=== PATIENT | female | born 1965 | race Caucasian/White ===

== ENCOUNTER 2020-09-30 21:23 | Emergency (ER) | payer SELFPAY ==
[~2020-09-30] VITALS: Ht 170.2 cm; Wt 84.1 kg
[2020-09-30 21:32] VITALS: BP 152/87; TEMP 98.4
[2020-10-01] MEDS ORDERED: NORCO 325 MG-51 TAB PO (00:18)
[2020-10-01 00:26] VITALS: PULSE 87
== END 2020-10-01 00:27 | disposition home or self-care (01) ==
LOC: COL.ER 21:23
DX: M87.052 Idiopathic aseptic necrosis of left femur (principal); N18.9 Chronic kidney disease, unspecified; F17.200 Nicotine dependence, unspecified, uncomplicated

== ENCOUNTER 2020-10-20 05:50 | Day surgery (SDC) | payer SELFPAY ==
[~2020-10-20] VITALS: Ht 170.2 cm; Wt 95.8 kg
[~2020-10-20 05:50] MED LIST: NORCO 325 MG-51 TAB PO
[2020-10-20 06:12] VITALS: BP 140/82; PULSE 81; TEMP 99
[2020-10-20 08:28] VITALS: TEMP 98.3
[2020-10-20 08:45] VITALS: BP 134/86; PULSE 77
--- NOTE | 2020-10-20 08:45 | NUR ---
Patient returns to room 7 per cart from PACU accompanied by Alida FRANCO and is awake and alert. Foot of cart elevated and ice bag on the right foot. Toes on the right foot pink and is able to wiggle toes freely. IV fluids infusing at TKO. Siderails up x2 and call light in reach. Allowed to rest.
[2020-10-20 09:00] VITALS: BP 134/77; PULSE 77
--- NOTE | 2020-10-20 09:00 | NUR ---
Continues to rest without any complaints of pain or nausa. Foot of cart remains elevated. IV fluids infusing. Siderails up x2. Ice bag on the right foot.
[2020-10-20 09:15] VITALS: BP 139/75; PULSE 78
--- NOTE | 2020-10-20 09:15 | NUR ---
More awake now. Taking grape juice. Denies right foot pain.
[2020-10-20 09:30] VITALS: BP 142/74; PULSE 79
--- NOTE | 2020-10-20 09:30 | NUR ---
Patient continues to deny right foot pain. Tolerated juice. Awake and alert. States that she is wanting her daughter to come and pick her up and wants to go home. Informed that she must eat and void prior to discharge. States that she will eat toast. IV to INT. Given toast to eat.
--- NOTE | 2020-10-20 09:35 | NUR ---
IV to INT and patient transfers from cart to bedside commode with use of walker. Instructed that she is not allowed to put any weight on the right foot. Bulky bertha wrap dressing and posterior splint remain dry.
--- NOTE | 2020-10-20 09:45 | NUR ---
Voids and is now resting on cart. Maritzae notified that patient is ready for discharge. INT discontinued and site is free of redness.
--- NOTE | 2020-10-20 10:05 | NUR ---
Patient is dressed.
--- NOTE | 2020-10-20 10:11 | NUR ---
Patient dismissed to home driven by daughter and taken to the front door per wheelchair and assisted into vehicle with instructions in hand.
--- NOTE | 2020-10-20 10:11 | NUR ---
Dismissal instructions given and patient voices understanding of these. States that she has her pain medication at home.
== END 2020-10-20 10:30 | disposition home or self-care (01) ==
LOC: SDCO 05:50
DX: M87.074 Idiopathic aseptic necrosis of right foot (principal); F17.210 Nicotine dependence, cigarettes, uncomplicated; Z79.899 Other long term (current) drug therapy
CPT/HCPCS: C1713; J0690; J1100; J1170; J2250; J2405; J2704; J2795; J3010; J7120

== ENCOUNTER 2022-04-27 13:14 | Day surgery (SDC) | payer MEDICAID ==
[~2022-04-27] VITALS: Ht 170.2 cm; Wt 89.2 kg
[2022-04-27 13:51] VITALS: BP 120/82; PULSE 79; TEMP 97.2
[2022-04-27] MEDS ORDERED: ZOFRAN ODT4 MG PO (14:05)
[2022-04-27] MEDS ORDERED: ZOLOFT 50MG50 MG PO (14:06)
[2022-04-27] MEDS ORDERED: PRIL40 PO (14:06)
[2022-04-27] MEDS ORDERED: DESYREL 100MG100 MG PO (14:06)
[2022-04-27] MEDS ORDERED: GLUCOPHAGE500 MG/TAB PO (14:07)
[2022-04-27] MEDS ORDERED: NEURONTIN300 MG/CAP PO (14:07)
[2022-04-27 15:10] VITALS: BP 125/76; PULSE 70; TEMP 97.7
[2022-04-27 15:15] VITALS: BP 122/70; PULSE 70
[2022-04-27 15:25] VITALS: BP 120/86; PULSE 72
--- NOTE | 2022-04-27 16:05 | NUR ---
1510 RECEIVED POST PROCEDURE REPORT FROM SALVADOR HUFF. PT IS ALERT AND REQUESTING TO USE RESTROOM. PT TAKEN TO RESTROOM. AMBULATORY BACK TO RECLINER. 1520 [facility] AND [facility] PUDDING PROVIDED PT TOLERATED PO IV WAS ACCIDENTLY PULLED OUT BY PT WHILE STILL IN PROCEDURE ROOM. CATHETER INTACT. BLEEDING CONTROLLED. 1545 PT EDUCATION INFORMATION AND PROVIDER DISCHARGE INSTRUCTIONS REVIEWED WITH PT. QUESTIONS INVITED. PT VERBALIZED UNDERSTANDING. 1600 PT TO LOBBY VIA WHEEL CHAIR FOR RIDE HOME WITH [facility] [employer].
== END 2022-04-27 16:05 | disposition home or self-care (01) ==
LOC: SDCO 13:14
DX: Z12.11 Encounter for screening for malignant neoplasm of colon (principal); D12.3 Benign neoplasm of transverse colon; K21.00 Gastro-esophageal reflux disease with esophagitis, without bleeding; K29.30 Chronic superficial gastritis without bleeding; K57.30 Diverticulosis of large intestine without perforation or abscess without bleeding; K92.0 Hematemesis; F17.290 Nicotine dependence, other tobacco product, uncomplicated; Z79.899 Other long term (current) drug therapy
CPT/HCPCS: J2704; J3010; J7120